=== PATIENT | female | born 2000 | race Caucasian/White ===

== ENCOUNTER 2020-10-06 20:57 | Emergency (ER) | payer OTHER ==
[2020-10-06] MEDS ORDERED: Ibuprofen 600 MG TAB ONE (22:16)
== END 2020-10-06 22:32 | disposition home or self-care (01) ==
LOC: MADERS 20:57
DX: S90.111A Contusion of right great toe without damage to nail, initial encounter (principal); F17.210 Nicotine dependence, cigarettes, uncomplicated; Z79.899 Other long term (current) drug therapy; W22.8XXA Striking against or struck by other objects, initial encounter
CPT/HCPCS: 99406